=== PATIENT | female | born 1995 | race Caucasian/White ===

== ENCOUNTER 2024-03-01 14:02 | Outpatient (AMB) | payer OTHER, SELFPAY ==
--- NOTE | 2024-03-01 14:18 | MHC.PC.OV ---
Vital Signs 03/01/24 14:20 Height 5 ft 2 in Weight 131 lb BMI 24.0 BP 112/74 Blood Pressure Location Lt brachial Position Sitting Pulse 89 Pulse Source Pulse Oximeter Pulse Oximetry (%) 98 Oxygen Delivery Method Room Air Intake Visit Reasons: PE/OVERDUE Intake Note: Pt is here today for PE. Pt has not been seen since 2019. Allergies lamotrigine [From LAMICTAL] Allergy (Intermediate, Unverified 03/01/24 14:22) RASH Medication List - Last Reconciled 03/01/24 by Avis Rivera MD No Known Home Meds Tobacco use date assessed: 03/01/24 Dental Screening Dental Screen Date: 03/01/24 Did you have a dental visit in the last 12 months?: Yes Did you have a dental problem in the last 6 months where you did not have access to dental care?: No Was dental information given to patient?: Patient has dentist HPI PE/OVERDUE HPI Details Pt presents for PE. Pt c/o neck swelling difficulty swallowing for 2 weeks. Pt lost 20 lb since had a baby 5 months ago. [facility] been [facility] Surgical History History of nasal surgery Hx of cholecystectomy Family History (Updated 03/01/24 @ 14:25 by Terrie Quezada Bailey) Father Hypertension Substance use disorder Mother No problems noted. 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 1. Little interest or pleasure in doing things: not at all 2. Feeling down, depressed, or hopeless: not at all 3. Trouble falling or staying asleep, or sleeping too much: not at all 4. Feeling tired or having little energy: several days 5. Poor appetite or overeating: not at all 6. Feeling bad about yourself - or that you are a failure or have let yourself or your family down: not at all 7. Trouble concentrating on things, such as reading the newspaper or watching television: several days 8. Moving or speaking so slowly that other people could have noticed. Or the opposite - being so fidgety or restless that you have been moving around a lot more than usual: not at all 9. Thoughts that you would be better off or of hurting yourself in some way: not at all Total score: 2 Depression Screening Interpretation: Negative Depression Screening Done: Yes 85455 - PHQ-9 Billing: Yes Source: Developed by Drs. Adalberto Wells, Mary Hurtado, Derek Winston and colleagues, with an educational luis alberto from [employer]. Thrive Questionnaire Date Thrive assessed: 03/01/24 I am a: Patient What is your living situation today?: I have a steady place to live Within the past 12 months, did the food you bought not last and you didn't have the money to get more?: Never true Within the past 12 months, did you worry whether your food would run out before you got money to buy more?: Never true Do you have trouble paying for medicines?: No Do you have trouble getting transportation to medical appointments?: No Do you have trouble paying your heating and electricity bill?: No Do you have trouble taking care of your child, family member or friend?: No Do you have trouble with day-to-day activities such as bathing, preparing meals, shopping, managing finances, etc.?: No Are you currently unemployed and looking for a job?: No Are you interested in more education?: No Please select the resources that you would like help with: None Currently or been in a relationship where the following occur: No concerns reported THRIVE Score: 0 AUDIT C Alcohol Use Questionnaire (AUDIT-C) 1. How often do you have a drink containing alcohol?: 2-4 times a month 2. How many drinks containing alcohol do you have on a typical day when you are drinking?: 1 or 2 3. How often do you have six or more drinks on one occasion?: Never Total Score: 2 SAMANTHA-7 AMB Questionnaire SAMANTHA-7 Date SAMANTHA - 7 assessed: 03/01/24 Feeling nervous, anxious, or on edge: 0 = Not at all Not being able to stop or control worryin = Not at all Worrying too much about different things: 0 = Not at all Trouble relaxin = Not at all Being so restless that it is hard to sit still: 0 = Not at all Becoming easily annoyed or irritable: 1 = Several days Feeling afraid as if something awful might happen: 0 = Not at all Total SAMANTHA-7 score (0-4 normal; 5-9 mild; 10-14 moderate; 15-21 severe): 1 Source: Developed by Drs. Adalberto Wells, Mary Hurtado, Derek Winston and colleagues, with an educational luis alberto from [employer]. SAMANTHA-7 Assessment Billing SAMANTHA-7 Assessment Tool: SAMANTHA-7 Assessment 52775 Review of Systems Const All systems reviewed & are unremarkable except as noted in HPI and below Eyes Reports no additional complaints ENT Reports no additional complaints Card Reports no additional complaints Resp Reports no additional complaints GI Reports no additional complaints Reports no additional complaints Physical exam (Primary Care) Vital Signs: Last Vital Signs Pulse 89 03/01/24 14:20 BP 112/74 03/01/24 14:20 Pulse Ox 98 03/01/24 14:20 Oxygen Delivery Method Room Air 03/01/24 14:20 BMI result Body Mass Index 24.0 Tobacco/Smoking Status: Tobacco use Status Tobacco use date assessed 03/01/24 03/01/24 14:27 Patient Tobacco Use Status Never used Tobacco 03/01/24 14:27 e-Cigarette/Vaping Use Currently Using 03/01/24 14:27 PHQ-9: PHQ-9 Score PHQ-9: Total score 2 03/01/24 14:27 Depression Screening Interpretation: Negative Thrive Assessment: Date of Thrive Assessment Date Thrive assessed 03/01/24 03/01/24 14:27 Currently or been in a relationship where the following occur: No concerns reported Const General: no acute distress HENMT Head: Yes normal to inspection Ears: hearing grossly normal bilaterally Face and sinus: Yes normal facial exam Throat: Yes posterior oropharynx normal Neck Neck: Yes no lymphadenopathy and Yes supple Thyroid: diffusely enlarged Resp Effort & Inspection: normal respiratory effort Auscultation: clear to auscultation bilaterally Cardio Rhythm: regular rhythm Heart sounds: S1 normal heart sound present and S2 normal heart sound present GI Inspection: Yes normal to inspection Palpation (GI): Soft to palpation Percussion: Yes normal to percussion Auscultation: normal bowel sounds Coding Level of Care Code Est Pt Prev Care 18-39y(29300) Diagnoses Annual physical exam Z00.00 Normal pelvic exam Z01.419 Enlarged thyroid E04.9 Additional Codes SAMANTHA-7 Assessment Billing - SAMANTHA-7 Assessment Tool: SAMANTHA-7 Assessment 98842 ([id number]) PHQ-9 - 51159 - PHQ-9 Billing: Yes ([id number]) Assessment & Plan Assessment & Plan (1) Annual physical exam: Code(s): Z00.00 - Encounter for general adult medical examination without abnormal findings Category: Medical Plan: Well-balanced diet regular physical activity discussed with the patient she will have a blood work today (2) 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 Panel Today E04.9 - Nontoxic goiter, unspecified, Z00.00 - Encounter for general adult medical examination without abnormal findings Triiodothyronine T3 Free Today E04.9 - Nontoxic goiter, unspecified, Z00.00 - Encounter for general adult medical examination without abnormal findings US thyroid Today E04.9 - Nontoxic goiter, unspecified TSH reflex Free T4 Today E04.9 - Nontoxic goiter, unspecified, Z00.00 - Encounter for general adult medical examination without abnormal findings
[2024-03-01 14:20] VITALS: BP 112/74; PULSE 89; O2SAT 98; BMI 24.0
== END 2024-03-01 15:15 | disposition home or self-care (01) ==
PROVIDERS: PCP Internal Medicine; Visit Provider Internal Medicine
DX: Z00.00 Encounter for general adult medical examination without abnormal findings (principal); Z01.419 Encounter for gynecological examination (general) (routine) without abnormal findings; E04.9 Nontoxic goiter, unspecified

== ENCOUNTER 2024-03-01 14:02 | Outpatient (REF) | payer OTHER, SELFPAY ==
--- NOTE | ~2024-03-01 | US_ITS ---
EXAMINATION: US THYROID CLINICAL INFORMATION: Nontoxic goiter COMPARISON: None available. TECHNIQUE: Linear transducer grayscale and color Doppler examination with attention to the region of the thyroid. FINDINGS: SIZE: Measurements of the thyroid lobes and nodules are given in sagittal, anteroposterior and transverse dimensions respectively. Right Thyroid Lobe: 6.0 x 2.2 x 2.2 cm, volume 15.2 mL. Parenchyma: The gland echotexture is heterogeneous. Thyroid vascularity is increased. Left Thyroid Lobe: 4.8 x 2.0 x 2.4 cm, volume 12.1 mL. Parenchyma: The gland echotexture is heterogeneous. Thyroid vascularity is increased. Isthmus: 0.8 cm in maximum AP dimension. Estimated total number of nodules greater than or equal to 1 cm: 0. Tree Topper nodules are described as follows: 1. Location: Left upper pole. Size: 0.6 x 0.4 x 0.5 cm, volume 0.05 mL. Nodule characteristics: Composition: Cystic(0). Echogenicity: Anechoic (0). Shape: Not taller than wide (0). Margins: Smooth (0). Echogenic Foci: None (0). ACR TI-RADS total points: 0 ACR TI-RADS category: 1 NODES: Multiple small cervical lymph nodes, particularly inferior to the thyroid with normal morphology. The largest measures 1.7 x 0.8 x 1.4 cm. US/US thyroid IMPRESSION: 1. Enlarged heterogeneous hypervascular thyroid gland. 2. 0.6 cm left upper pole thyroid nodule does not meet criteria for follow-up. 3. Multiple small cervical lymph nodes, particularly inferior to the thyroid with normal morphology. ACR TI-RADS RECOMMENDATION REFERENCE: Ultrasound-guided fine-needle aspiration, followup ultrasound, no further follow up. * TR1 (0 point) and TR2 (2 points): No FNA or follow up. * TR3 (3 points): FNA if more than or equal to 2.5 cm in maximum dimension, followup ultrasound in 1, 3 and 5 years if 1.5 to 2.4 cm in maximum dimension. * TR4 (4-6 points): FNA if more than or equal to 1.5 cm in maximum dimension, followup ultrasound in 1, 2, 3 and 5 years if 1 to 1.4 cm in maximum dimension. * TR5 (more than or equal to 7 points): FNA if more than or equal to 1 cm in maximum dimension, followup ultrasound every year for 5 years if 0.5 to 0.9 cm in maximum dimension. * TR3, TR4 or TR5 nodules that are below the size threshold for followup receive no follow up. Electronically signed by: Prabha Merchant MD 03/03/2024 07:05 PM MONCHO PRADO
[2024-03-01 16:06] LABS: MANUAL DIFF FLAG NO
[2024-03-01 16:33] LABS: Basophils Absolute Auto 0.1 X10*3/uL (0.0-0.2); Basophils Percent Auto 0.8 % (0-2); Eosinophils Absolute Auto 0.1 X10*3/uL (0.0-0.4); Eosinophils Percent Auto 1.5 % (0-4); Hematocrit 37.9 % (37.0-47.0); Hemoglobin 11.8 g/dl (12.0-16.0); Imm Gran Abs Auto 0.03 X10*3/uL (0.00-0.03); Imm Gran Pct Auto 0.3 % (0.0-0.4); Lymphocytes Absolute Auto 2.6 X10*3/uL (1.2-4.9); Lymphocytes Percent Auto 29.4 % (20-40); Mean Corpuscular HGB Conc 31.1 g/dl (31.0-35.0); Mean Corpuscular Volume 83.7 fL (80.0-98.0); Mean Platelet Volume 9.9 fL (9.4-12.3); Monocytes Absolute Auto 0.5 X10*3/uL (0.1-1.2); Monocytes Percent Auto 5.3 % (2-11); Neutrophils Absolute Auto 5.6 x10*3/uL (2.0-8.3); Neutrophils Percent Auto 62.7 % (45-73); Platelet Count 351 X10*3/uL (160-400); Red Blood Count 4.53 X10*6/uL (4.20-5.50); Red Cell Distribution Width 17.3 % (11.0-16.0); White Blood Count 8.9 X10*3/uL (4.8-10.8)
[2024-03-01 17:00] LABS: Alanine Aminotransferase 17 U/L (0-31); Albumin Level 4.7 g/dL (3.5-5.0); Alkaline Phosphatase 80 U/L (39-117); Anion Gap 14 (12-20); Aspartate Amino Transferase 21 U/L (5-31); Bilirubin Total 0.2 mg/dL (0.0-1.0); Blood Urea Nitrogen 16 mg/dL (9-16); Calcium 9.8 mg/dL (8.4-10.2); Carbon Dioxide 28 mmol/L (22-29); Chloride 105 mmol/L (96-108); Estimated Glomerular Filt Rate > 60; Glucose Random 73 mg/dL (60-115); Potassium 4.6 mmol/L (3.3-5.1); Sodium 142 mmol/L (135-145); Total Protein 7.9 g/dL (6.5-8.0)
[2024-03-01 17:17] LABS: TSH reflex Free T4 27.88 uIU/mL (0.32-4.0)
== END 2024-03-01 14:03 | disposition home or self-care (01) ==
LOC: HO.HMGCLDS 14:02
PROVIDERS: PCP Internal Medicine; Visit Provider Internal Medicine
DX: Z00.00 Encounter for general adult medical examination without abnormal findings (principal); E04.9 Nontoxic goiter, unspecified
CPT/HCPCS: 36415; 76536; 80053; 84439; 84443; 84481; 85025; 96127

== ENCOUNTER 2024-04-23 09:31 | Outpatient (REF) | payer OTHER, SELFPAY ==
--- OUTSIDE RECORDS SUMMARY | 2024-04-23 13:56 | XMS_ITS | Clinical Summary ---
Author Organization [facility] Address [address] [place] [id number] Phone Care Team Providers Care Product Tester Fiberglass Name Role Phone Ileana Smith MD Primary Care Provider [phone] Allergies Active Allergy Reactions Criticality Noted Date Comments Lamotrigine 01/12/2018 Medications hydrOXYzine 25 MG tabletIndicatio ns:Anxiety Take 1 tablet (25 mg total) by mouth every 8 (eight) hours as needed for anxiety for up to 7 days. 20 tablet 8 Active OXcarbazepine 300 MG tablet PLEASE SEE ATTACHED FOR DETAILED DIRECTIONS 11 9 Active folic acid 1 MG tablet TAKE 4 TABLETS BY MOUTH DAILY, X 180 DAYS 0 9 Active DHA 200 MG capsule Take 1 tablet by mouth once daily. 2 9 Active Immunizations Name Administration Dates Next Due DTaP 5 02/03/1998, 5,1993,06/16,1993 H1N1 Inj Preservative Free 12/22/2009,01/01/2009 HPV, Quadrivalent 04/01/2008,07/10/2007,05/09/19 08 Hep B, ped/adol 1993,1993,1993 Hib (PRP-T) 05/17/1994, 4,1993,04/13 Influenza, injectable, triva lent, preservative free 04/19/2011 MMR 02/03/1998,1994 Meningococcal Conj (Menveo) MCV4O 04/28/2015, OPV 02/03/1998, 5,1993,04/13 Td (adult) (Tenivac), 5 Lf t etanus toxoid, PF, adsorbed 02/27/2004 Tdap 11/25/2008 Family History Medical History Relation Name Comments No Known Problems Brother Mack No Known Problems Father Mack No Known Problems Half-Brother Jama No Known Problems Mother Honey Relation Name Status Comments Brother Mack Alive Father Mack Alive Half-Brother Jama Alive Mother Honey Alive Social History Tobacco Use Types Packs/Day Years Used Date Smoking Tobacco: Every Day Smokeless Tobacco: Never Comments Yes Sex and Gender Information Value Date Recorded Sex Assigned at Not on file Legal Sex Female 9:08 AM EDT Gender Identity Not on file Sexual Orientation Not on file Last Filed Vital Signs Vital Sign Reading Time Taken Comments Blood Pressure 106/68 06/30/2018 4:45 PM EDT Pulse 80 01/19/2018 11:51 AM EDT Temperature 37.6 ??C (99.7 ??F) 06/30/2018 4:45 PM ED T Respiratory Rate - - Oxygen Saturation - - Inhaled Oxygen Concentration - - Weight 66.8 kg (147 lb 6 oz) 06/30/2018 4:45 PM EDT Height 157.5 cm (5' 2 ) 06/30/2018 4:45 PM EDT Body Mass Index 26.96 06/30/2018 4:45 PM EDT Plan of Treatment Health Maintenance Due Date Last Done Comments Varicella Vaccines (1 of 2 - 13+ 2-dose series) 2006 DTaP,Tdap,and Td Vaccines (7 - Td or Tdap) 11/25/2018 11/25/2008, 02/27/2004, 02/03/1998, Additional history exists Influenza Vaccines (#1) 2023 04/19/2011 COVID-19 Vaccine ( season) 2023 Hepatitis B Vaccines Completed 1993, 1993, 1993 HIB Vaccines Completed 05/17/1994, 07/27, 1993, Additional history exists IPV Vaccines Completed 02/03/1998, 07/27, 1993, Additional history exists MMR Vaccines Completed 02/03/1998, 1994 HPV Vaccines Completed 04/01/2008, 06/26, 05/09/2007 Meningococcal Vaccine Aged Out 04/28/2015, 009 No longer eligible based on patient's age to complete this topic Hepatitis A Vaccines Aged Out No long er eligible based on patient's age to complete this topic Men B Vaccine Aged Out No longer elig ible based on patient's age to complete this topic Pneumococcal Vaccine Aged Out No long er eligible based on patient's age to complete this topic Procedures * Due to [place] law, this organization might not be sharing sensitive test results. Procedure Name Priority Date/Time Associated Diagnosis Comments CHLAMYDIA AND GONORRHEA, AMPLIFIED Routine 01/19/2018 12:30 PM EDT Well adult exam from Last 3 Months or Most Recently Relevant to Health Maintenance Results * Due to [place] law, this organization might not be sharing sensitive test results. * (ABNORMAL) Chlamydia and Gonorrhea, Amplified (01/19/2018 12:30 PM EDT) Pathologist [facility] Chlamydia Trachomatis, DNA Probe POSITIVE(A) (NEG) [facility] Comment: Chlamydia Trachomatis RNA detected in this patient's sample ? (REFERENCE RANGE/NORMAL VALUE: NOT DETECTED) ? Result reported to [facility]. ? Note: This test uses cotton picker operator- mediated amplification method to detect rRNA from C. Trachomatis URINE GC AMP PROBE NEGATIVE (NEG) [facility] Comment: No Neisseria Gonorrhoeae RNA detected in this patient's sample ? (REFERENCE RANGE/NORMAL VALUE: NOT DETECTED) ? NOTE: This test uses cotton picker operator-mediated amplification method to detect rRNA from N.Gonorrhoeae. A negative result does not preclude infection. In the case of a negative urine result, testing of an endocervical(female) or urethral (male) specimen is recommended if there is high clinical suspicion of infection. Due to very high sensitivity of Nucleic Acid Amplification Test, false positive results may occur. Therefore, specimen handling is extremely important. In patients in whom the disease is unlikely, additional sample for testing should be considered after an initial positive result. The performance characteristics of this test have not been evaluated in children. The Aptima Combo2 assay is not intended for the evaluation of suspected sexual abuse or for other medico-legal indications. The ordering provider should assess if the patient had consensual sex without risk of sexual abuse. Consult the [facility] if needed. Contact phone number . Therapeutic failure or success cannot be determined with the Aptima Combo2 assay since nucleic acid may persist following appropriate antimicrobial therapy. The Centers for Disease Control and Prevention (CDC) recommends confirmatory retesting using culture or a different nucleic acid amplification test when positive results occur, if indicated. Testing performed or reported by [facility], a Service of [facility], [address] [place] [id number] CLIA [id number] Ino Tsai MD, Mortgage Specialist Urine 01/19/2018 12:3 0 PM EDT 01/20/2018 12:47 AM EDT us Ileana Smith MD LAB MICROBIOLOGY - GENERAL ORDER SURENDRA Final Result [facility] from Last 3 Months or Most Recently Relevant to Health Maintenance Insurance [facility] [employer] Care Teams Product Tester Fiberglass Relationship Specialty Start Date End Date Ileana Smith MD PCP - General Pediatrics 01/19/18
[2024-04-23 14:01] LABS: TSH reflex Free T4 1.11 uIU/mL (0.32-4.0)
[2024-04-24 07:09] LABS: Triiodothyronine T3 Free 2.5 pg/mL (2.3-4.2)
[2024-04-24 09:58] LABS: Thyroid Peroxidase Antibodies 617 IU/mL (<9)
== END 2024-04-23 09:32 | disposition home or self-care (01) ==
LOC: HO.HMGCLDS 09:31
PROVIDERS: PCP Internal Medicine; Visit Provider Internal Medicine
DX: E03.9 Hypothyroidism, unspecified (principal)
CPT/HCPCS: 36415; 84443; 84481; 86376

== ENCOUNTER 2025-03-11 13:17 | Outpatient (AMB) | payer OTHER, SELFPAY ==
[2025-03-11 13:38] VITALS: BP 120/74; PULSE 94; RESP 16; O2SAT 99; BMI 25.8
--- NOTE | 2025-03-11 13:38 | A.OFFPC_ITS ---
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 COUNT INCLUDES THE [facility] Medical History (Updated 03/11/25 @ 19:50 by Avis Rivera MD) Annual physical exam Hypothyroid Surgical History History of nasal surgery Hx of cholecystectomy Family History Father Hypertension Substance use disorder Mother No problems noted. 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 1. Little interest or pleasure in doing things: not at all 2. Feeling down, depressed, or hopeless: not at all 3. Trouble falling or staying asleep, or sleeping too much: not at all 4. Feeling tired or having little energy: nearly every day 5. Poor appetite or overeating: not at all 6. Feeling bad about yourself - or that you are a failure or have let yourself or your family down: not at all 7. Trouble concentrating on things, such as reading the newspaper or watching television: nearly every day 8. Moving or speaking so slowly that other people could have noticed. Or the opposite - being so fidgety or restless that you have been moving around a lot more than usual: not at all 9. Thoughts that you would be better off or of hurting yourself in some way: not at all Total score: 6 Depression Screening Interpretation: Negative Depression Screening Done: Yes Source: Developed by Drs. Adalberto Wells, Mary Hurtado, Derek Winston and colleagues, with an educational luis alberto from [employer]. Thrive Questionnaire Date Thrive assessed: 03/01/24 I am a: Patient What is your living situation today?: I have a steady place to live Within the past 12 months, did the food you bought not last and you didn't have the money to get more?: Never true Within the past 12 months, did you worry whether your food would run out before you got money to buy more?: Never true Do you have trouble paying for medicines?: No Do you have trouble getting transportation to medical appointments?: No Do you have trouble paying your heating and electricity bill?: No Do you have trouble taking care of your child, family member or friend?: No Do you have trouble with day-to-day activities such as bathing, preparing meals, shopping, managing finances, etc.?: No Are you currently unemployed and looking for a job?: No Are you interested in more education?: No Please select the resources that you would like help with: None Currently or been in a relationship where the following occur: No concerns reported THRIVE Score: 0 AUDIT C Alcohol Use Questionnaire (AUDIT-C) 1. How often do you have a drink containing alcohol?: 2-3 times a week 2. How many drinks containing alcohol do you have on a typical day when you are drinking?: 1 or 2 3. How often do you have six or more drinks on one occasion?: Never Total Score: 3 SAMANTHA-7 AMB Questionnaire SAMANTHA-7 Date SAMANTHA - 7 assessed: 03/01/24 Feeling nervous, anxious, or on edge: 0 = Not at all Not being able to stop or control worryin = Not at all Worrying too much about different things: 3 = Nearly every day Trouble relaxin = More than half the days Being so restless that it is hard to sit still: 0 = Not at all Becoming easily annoyed or irritable: 3 = Nearly every day Feeling afraid as if something awful might happen: 0 = Not at all Total SAMANTHA-7 score (0-4 normal; 5-9 mild; 10-14 moderate; 15-21 severe): 8 Source: Developed by Drs. Adalberto Wells, Mary Hurtado, Derek Winston and colleagues, with an educational luis alberto from [employer]. Review of Systems Const All systems reviewed & are unremarkable except as noted in HPI and below Eyes Reports no additional complaints ENT Reports no additional complaints Card Reports no additional complaints Resp Reports no additional complaints GI Reports no additional complaints Reports no additional complaints Musc Reports no additional complaints Physical exam (Primary Care) Vital Signs: Last Vital Signs Pulse 94 03/11/25 13:38 Resp 16 03/11/25 13:38 BP 120/74 03/11/25 13:38 Pulse Ox 99 03/11/25 13:38 BMI result Body Mass Index 25.8 Tobacco/Smoking Status: Tobacco use Status Tobacco use date assessed 03/11/25 03/11/25 13:41 Patient Tobacco Use Status Never used Tobacco 03/11/25 13:41 e-Cigarette/Vaping Use Currently Using 03/11/25 13:41 PHQ-9: PHQ-9 Score PHQ-9: Total score 6 03/11/25 16:23 Depression Screening Interpretation: Negative Thrive Assessment: Date of Thrive Assessment Date Thrive assessed 03/01/24 03/11/25 13:41 Currently or been in a relationship where the following occur: No concerns reported Const General: no acute distress HENMT Head: Yes normal to inspection Face and sinus: Yes normal facial exam Mouth: Normal oral and palatal mucosa present Throat: Yes posterior oropharynx normal Eyes General: appearance normal, both eyes and all related structures Neck Neck: Yes no lymphadenopathy and Yes supple Resp Effort & Inspection: normal respiratory effort Auscultation: clear to auscultation bilaterally Cardio Rhythm: regular rhythm Heart sounds: S1 normal heart sound present and S2 normal heart sound present GI Inspection: Yes normal to inspection Palpation (GI): Soft to palpation Percussion: Yes normal to percussion Auscultation: normal bowel sounds Extrem General: Yes no clubbing, cyanosis or edema Coding Level of Care Code Est Pt Prev Care 18-39y(04591) Diagnoses Hypothyroid E03.9 Annual physical exam Z00. Assessment & Plan Assessment & Plan (1) Hypothyroid: Code(s): E03.9 - Hypothyroidism, unspecified Category: Medical Plan: Continue levothyroxine patient will return for fasting blood work this week (2) Annual physical exam: Code(s): Z. - Encounter for general adult medical examination without abnormal findings Category: Medical Plan: Well-balanced diet regular physical activity discussed with the patient she is up-to-date with a pelvic exam by financial auditor Orders: Orders Complete Blood Count Auto Diff Today E03.9 - Hypothyroidism, unspecified, E04.9 - Nontoxic goiter, unspecified, Z00.00 - Encounter for general adult medical examination without abnormal findings Lipid Panel Today E03.9 - Hypothyroidism, unspecified, E04.9 - Nontoxic goiter, unspecified, Z00.00 - Encounter for general adult medical examination without abnormal findings UA w Microscopic Today E03.9 - Hypothyroidism, unspecified, E04.9 - Nontoxic goiter, unspecified, Z00.00 - Encounter for general adult medical examination without abnormal findings TSH reflex Free T4 1 Year Z00.00 - Encounter for general adult medical examination without abnormal findings UA w Microscopic 1 Year Z00.00 - Encounter for general adult medical examination without abnormal findings Comprehensive Peebles. Panel Fast Today E03.9 - Hypothyroidism, unspecified, E04.9 - Nontoxic goiter, unspecified, Z00.00 - Encounter for general adult medical examination without abnormal findings TSH reflex Free T4 Today E03.9 - Hypothyroidism, unspecified, E04.9 - Nontoxic goiter, unspecified, Z00.00 - Encounter for general adult medical examination without abnormal findings Comprehensive Peebles. Panel Fast 1 Year Z00.00 - Encounter for general adult medical examination without abnormal findings Complete Blood Count Auto Diff 1 Year Z00.00 - Encounter for general adult medical examination without abnormal findings Lipid Panel 1 Year Z00.00 - Encounter for general adult medical examination without abnormal findings Medications: Refilled levothyroxine 50 mcg PO DAILY 90 tabs 3RF
--- OUTSIDE RECORDS SUMMARY | 2025-03-11 19:16 | XMS_ITS | Clinical Summary ---
Author Organization [facility] Address [address] [place] [id number] Phone Care Team Providers Care Facility Assistant Name Role Phone Unknown, Unknown MD Primary Care Provider Ashley garcia Allergies Active Allergy Reactions Criticality Noted Date Comments Lamotrigine 01/12/2018 Medications clonazePAM (KLONOPIN) 0.5 MG disintegrating tablet Take 1 tablet (0.5 mg total) by mouth once as needed (seizure). 2 tablet 8 Active Social History Tobacco Use Types Packs/Day Years Used Date Smoking Tobacco: Every Day Smokeless Tobacco: Never Alcohol Use Standard Drinks/Week Comments Yes 0 (1 standard drink = 0.6 oz pur e alcohol) Education Answer Date Recorded Are you interested in more education? Not on augustine e 07/23/2022 Are you concerned about learning? Not on file 07/23/2022 No 07/23/2022 No 07/23/2022 Digital Access Answer Date Recorded No 08/24/2022 No 08/24/2022 No 08/24/2022 Reliable internet access at home? Not on file 08/24/2022 Device with a working camera? Not on file Comments No Sex and Gender Information Value Date Recorded Sex Assigned at Female 01/12/2018 3:43 PM EDT Legal Sex Female 3:29 PM EDT Gender Identity Female 01/12/2018 3:43 PM EDT Sexual Orientation Bisexual 01/12/2018 3: 43 PM EDT Last Filed Vital Signs Vital Sign Reading Time Taken Comments Blood Pressure 130/89 01/12/2018 9:53 PM EDT Pulse 118 01/12/2018 9:53 PM EDT Temperature 36.8 C (98.3 F) 01/12/2018 9:53 PM EDT Respiratory Rate 19 01/12/2018 7:00 PM EDT Oxygen Saturation 100% 01/12/2018 9:53 PM EDT Inhaled Oxygen Concentration - - Weight 54.4 kg (120 lb) 01/12/2018 3:53 PM EDT Height 157.5 cm (5' 2 ) 01/12/2018 3:53 PM EDT Body Mass Index 21.95 01/12/2018 3:53 PM EDT Plan of Treatment Not on file Medical Devices Not on file Insurance [employer] Care Teams Facility Assistant Relationship Specialty Start Date End Date Unknown, Unknown, PCP - General 01/12/18 Additional Source Comments The information contained in this document represents components of the legal health record. It is not the complete legal health record.[facility]
--- OUTSIDE RECORDS SUMMARY | 2025-03-11 19:16 | XMS_ITS | Clinical Summary ---
Author Organization [facility] Address [address] [place] [id number] Phone Care Team Providers Care Integration Specialist Name Role Phone Ileana Smith MD Primary Care Provider [phone] Allergies Active Allergy Reactions Criticality Noted Date [...] mouth once daily. 2 9 Active Immunizations Immunization Administration Dates Next Due DTaP 5 02/03/1998, 5,1993,06/16,1993 H1N1 Inj Preservative Free 12/22/2009,01/01/2009 HPV, Quadrivalent 04/01/2008,07/10/2007,05/09/19 08 Hep B, ped/adol 1993,1993,1993 Hib (PRP-T) 05/17/1994, 4,1993,04/13 Influenza, injectable, triva lent, preservative free 04/19/2011 MMR 02/03/1998,1994 Meningococcal Conj (Menveo) MCV4O 04/28/2015, OPV 02/03/1998, 5,1993,04/13 Td (adult) (Teniva), 5 Lf t etanus toxoid, PF, adsorbed [...] 80 01/19/2018 11:51 AM EDT Temperature 37.6 C (99.7 F) 06/30/2018 4:45 PM EDT Respiratory Rate - - Oxygen Saturation - [...] 02/03/1998, Additional history exists Influenza Vaccines (#1) 2024 04/19/2011 COVID-19 Vaccine ( season) 2024 Hepatitis B Vaccines Completed 1993, 1993, 1993 [...] complete this topic Procedures * Due to [place] deskwolf law, this organization might not be sharing sensitive test results. Procedure Name Priority Date/Time Associated Diagnosis Comments CHLAMYDIA AND GONORRHEA, AMPLIFIED Routine 01/19/2018 12:30 PM EDT Well adult exam from Last 3 Months or Most Recently Relevant to Health Maintenance Results * Due to [place] deskwolf law, this organization might not be sharing sensitive test results. * (ABNORMAL) Chlamydia and Gonorrhea, Amplified (01/19/2018 12:30 PM EDT) Chlamydia Trachomatis, DNA Probe POSITIVE(A) (NEG) [facility] Comment: Chlamydia Trachomatis RNA detected in this patient's sample (REFERENCE RANGE/NORMAL VALUE: NOT DETECTED) Result reported to [facility]. Note: This test uses machine pecan gatherer- mediated amplification method to detect rRNA from C. Trachomatis URINE GC AMP PROBE NEGATIVE (NEG) [facility] Comment: No Neisseria Gonorrhoeae RNA detected in this patient's sample (REFERENCE RANGE/NORMAL VALUE: NOT DETECTED) NOTE: This test uses machine pecan gatherer-mediated amplification method to detect rRNA from N.Gonorrhoeae. [...] without risk of sexual abuse. Consult the [facility] if needed. Contact phone number . Therapeutic failure or success cannot be determined with the Aptima Combo2 assay since nucleic acid may persist following appropriate antimicrobial therapy. The Centers for Disease Control and Prevention (CDC) recommends confirmatory retesting using culture or a different nucleic acid amplification test when positive results occur, if indicated. Testing performed or reported by [facility], a Service of [facility], [facility] [place] [address] [place] [id number] Ino Tsai MD, Dust Mop Maker Urine 01/19/2018 12:3 0 PM EDT 01/20/2018 12:47 AM EDT us Ileana Smith MD LAB MICROBIOLOGY - GENERAL ORDER SURENDRA Final Result [facility] from Last 3 Months or Most Recently Relevant to Health Maintenance Insurance [facility] [employer] Care Teams Integration Specialist Relationship Specialty Start Date End Date Ileana Smith MD PCP - General Pediatrics 01/19/18
== END 2025-03-11 16:48 | disposition home or self-care (01) ==
LOC: HO.HMCC 13:18
PROVIDERS: PCP Internal Medicine; Visit Provider Internal Medicine
DX: Z00.00 Encounter for general adult medical examination without abnormal findings (principal); E03.9 Hypothyroidism, unspecified